=== PATIENT | female | born 1985 | race Caucasian/White ===

== ENCOUNTER 2017-10-05 04:47 | Inpatient (IN) ==
[2017-10-05] MEDS ORDERED: NS 1000 ML 1,000 ML IV ONE (05:05)
[2017-10-05] MEDS ORDERED: DEMEROL INJ IVP ONE (05:05)
[2017-10-05] MEDS ORDERED: ZOFRAN INJ 4 MG VIAL IVP ONE (05:05)
[2017-10-05] MEDS ORDERED: NS 1000 ML 1,000 ML ONE (05:07)
[2017-10-05] MEDS ORDERED: ZOFRAN INJ 4 MG VIAL ONE (05:07)
[2017-10-05] MEDS ORDERED: DEMEROL INJ ONE (05:07)
[2017-10-05 05:35] LABS: BASOPHILS # (AUTO) 0.1 X10^3/uL (0.0-0.1); BASOPHILS % (AUTO) 0.9 % (0.2-1.0); EOSINOPHILS % (AUTO) 0.5 % (0.9-2.9); HEMATOCRIT 38.7 % (36.0-47.0); HEMOGLOBIN 13.7 g/dL (12.0-16.0); LYMPHOCYTES # (AUTO) 2.5 X10^3/uL (1.3-2.9); MEAN CORPUSCULAR HEMOGLOBIN 31.7 pg (27.0-34.0); MEAN CORPUSCULAR HGB CONC 35.3 g/dL (33.0-35.0); MEAN CORPUSCULAR VOLUME 89.7 fL (80.0-100.0); MEAN PLATELET VOLUME 10.9 fL (7.4-11.0); NEUTROPHILS # (AUTO) 4.7 x10^3/uL (2.2-4.8); NEUTROPHILS % (AUTO) 56.6 % (42.0-75.0); PLATELET COUNT 276 X10^3/uL (150.0-450.0); RED BLOOD COUNT 4.32 X10^6/uL (3.5-5.4); RED CELL DISTRIBUTION WIDTH 13.4 % (11.6-16.5); WHITE BLOOD COUNT 8.3 X10^3/uL (3.6-10.0)
[2017-10-05 05:40] LABS: ALANINE AMINOTRANSFERASE 17 Units/L (12-78); ALBUMIN 4.1 g/dL (3.4-5.0); ALKALINE PHOSPHATASE 82 Units/L (46-116); ASPARTATE AMINO TRANSFERASE 9 Units/L (15-37); BLOOD UREA NITROGEN 24 mg/dL (7-18); CALCIUM 9.8 mg/dL (8.5-10.1); CARBON DIOXIDE 35.9 mmol/L (21-32); CHLORIDE 102 mmol/L (98-107); CREATININE 0.85 mg/dL (0.55-1.02); SODIUM 144 mmol/L (136-145); TOTAL PROTEIN 7.9 g/dL (6.4-8.2); eGFR NON BLACK RACES > 60 (>60)
[2017-10-05] MEDS ORDERED: DEMEROL INJ IVP PRN (08:40)
[2017-10-05] MEDS ORDERED: ZOFRAN INJ 4 MG VIAL IVP SCH (09:00)
[2017-10-05] MEDS: NS 1000 ML 1,000 ML IV SCH ×2 (09:40→16:25)
[2017-10-05 10:47] VITALS: BMI 17.6
[2017-10-05] MEDS: DEMEROL INJ IVP PRN ×3 (13:29→21:23)
[2017-10-05] MEDS: ZOFRAN INJ 4 MG VIAL IV PRN ×2 (15:39→21:24)
[2017-10-05] MEDS ORDERED: CHLORASEPTIC SPRAY MT PRN (23:38)
[2017-10-05] MEDS: PROTONIX INJ 40 MG VIAL IVP SCH (23:58)
[2017-10-06] MEDS: D5 1/2 NS 1000 ML 1,000 ML IV SCH ×6 (00:03→22:38)
[2017-10-06] MEDS ORDERED: DEMEROL INJ IVP ONE (00:04)
--- NOTE | 2017-10-06 00:23 | RAD ---
Acute abdominal series, three views Indication: Abdominal pain, NG tube placement Comparison: 10/04/2017 Findings: The heart is normal in size and the lungs are clear. No pleural effusion or pneumothorax id entified. The visualized bowel gas pattern is nonobstructive. No free air pneumatosis is identified. No patholo gic calcifications are seen. A nasogastric tube terminates over the left mid abdomen with side-port d istal to the GE junction. Imaged osseous structures are grossly intact. Impression: No acute chest process. No acute abdominal abnormality. Satisfactory NG tube placement, as above. Reported By:
[2017-10-06] MEDS: ZOFRAN INJ 4 MG VIAL IV PRN ×3 (03:32→20:32)
[2017-10-06] MEDS: DEMEROL INJ IVP PRN ×5 (03:32→22:36)
[2017-10-06 06:04] LABS: BASOPHILS % (AUTO) 0.4 % (0.2-1.0); EOSINOPHILS % (AUTO) 0.2 % (0.9-2.9); HEMATOCRIT 33.6 % (36.0-47.0); HEMOGLOBIN 11.6 g/dL (12.0-16.0); LYMPHOCYTES # (AUTO) 2.5 X10^3/uL (1.3-2.9); LYMPHOCYTES % (AUTO) 21.6 % (21.0-51.0); MEAN CORPUSCULAR HGB CONC 34.5 g/dL (33.0-35.0); MEAN CORPUSCULAR VOLUME 89.9 fL (80.0-100.0); MEAN PLATELET VOLUME 11.1 fL (7.4-11.0); MONOCYTES # (AUTO) 0.9 x10^3/uL (0.3-0.8); MONOCYTES % (AUTO) 7.8 % (0.0-13.0); NEUTROPHILS # (AUTO) 8.1 x10^3/uL (2.2-4.8); PLATELET COUNT 227 X10^3/uL (150.0-450.0); RED BLOOD COUNT 3.73 X10^6/uL (3.5-5.4); RED CELL DISTRIBUTION WIDTH 13.3 % (11.6-16.5); WHITE BLOOD COUNT 11.6 X10^3/uL (3.6-10.0)
[2017-10-06 06:38] LABS: ALANINE AMINOTRANSFERASE 16 Units/L (12-78); ALBUMIN 3.3 g/dL (3.4-5.0); ALKALINE PHOSPHATASE 64 Units/L (46-116); ASPARTATE AMINO TRANSFERASE 9 Units/L (15-37); BLOOD UREA NITROGEN 18 mg/dL (7-18); CALCIUM 8.5 mg/dL (8.5-10.1); CARBON DIOXIDE 31.4 mmol/L (21-32); CHLORIDE 104 mmol/L (98-107); COR CA(FOR HYPOALB) 9.1 mg/dL (8.5-10.1); COR NA(FOR HYPERGLY) 140 mmol/L (136-145); CREATININE 0.72 mg/dL (0.55-1.02); SODIUM 139 mmol/L (136-145); TOTAL PROTEIN 6.4 g/dL (6.4-8.2); eGFR NON BLACK RACES > 60 (>60)
--- NOTE | 2017-10-06 07:19 | RAD ---
HISTORY: Bowel obstruction Study: Acute abdominal series Comparison: 10/06/2017 at 12:07 a.m. Findings: The trachea is midline. The cardiac silhouette is unremarkable. The lungs are clear without focal i nfiltrate or effusion. The bony thorax is unremarkable. A nasogastric tube is in place with the tip at the level of the mid gastric body in the side hole wit hin the region of the gastric fundus. This is in satisfactory position. Flat plate and upright evaluation of the abdomen demonstrates a normal bowel gas pattern. There is no evidence of bowel obstruction or perforation. No free intraperitoneal air or fluid is seen. No path ological soft tissue mass or calcification can be observed. There are postsurgical changes present in volving the medial cecal region, likely from appendectomy. The bony structures are grossly intact. IMPRESSION: 1. No acute cardiopulmonary disease. 2. No evidence for acute abdominal pathology identified. No obstruction or perforation is seen. 3. Satisfactory placement of NG tube. Reported By:
[2017-10-06] MEDS: PROTONIX INJ 40 MG VIAL IVP SCH (08:48)
--- NOTE | 2017-10-06 10:57 | DR.H&P ---
H&P - History & Physical for Day of: H&P Date: 10/05/17 - Chief Complaint Chief Complaint: N/V/ABDOMINAL PAIN - History of Present Illness History of Present Illness: IS A 32 YEAR OLD PATIENT OF OURS WHO PRESENTED TO THE EMERGENCY ROOM WITH COMPLAINTS OF NAUSEA, VOMITING, AND ABDOMINAL PAIN. PATIENT REPORTS THAT SYMPTOMS STARTED ONE DAY EARLIER. THIS WAS APPARENTLY THE THIRD VISIT FOR THIS PATIENT FOR THE SAME SYMPTOMS IN THE PAST 24 HOURS. ON EXAMINATION, PATIENT IS NOTED WITH MODERATE, ON ARRIVAL, VITALS WERE 98.2-18-63-100%-123/58. LABS WERE OBTAINED. ABNORMAL LAB VALUES INCLUDE THE FOLLOWING: POTASSIM 3.4, CARBON DIOXIDE 35.9, BUN 24, AST 9. AN ABDOMEN/ PELVIS CT WAS OBTAINED YESTERDAY ON HER PREVIOUS VISIT TO THE ER AND REVEALED: Moderately severe distention of the stomach and moderate dilatation of the 1st and 2nd portion the duodenum with the 3rd portion of the duodenum appearing normal caliber. This may be due to an obstruction with no obvious abnormality seen along the transition of the 2nd and 3rd portion the duodenum . Recommend follow-up.Questionable mild ileus along the lower pelvic lower abdomen and pelvis with no pelvic mass or inflammation. PATIENT WAS ADMITTED FOR FURTHER EVALUATION AND TREATMENT. SHE WAS START ON D5 NS AT 150ML/HR, DEMEROL 25MG IV Q6H PRN PAIN, ZOFRAN 8MG IV Q6H PRN NAUSEA, AND PROTONIX 40MG IV DAILY. WE WILL CONSULT , GENERAL SURGEON. OTHERWISE, WE WILL FOLLOW UP WITH AM LABS AND CONTINUE TO MONITOR PATIENT. - Past Medical History Past Medical History: Seizures - Past Surgical History Surgical History: Appendectomy, Hysterectomy - Family History Family Medical History: Diabetes Mellitus, DC, Hypertension - Social History Does patient currently use any type of tobacco product: Yes Have you used tobacco products in the last 12 months: Yes Type of Tobacco Use: Cigarettes How many years tobacco product used: 21 Does any household member use tobacco: Yes Alcohol Use: None Drug Use: Prescription Drugs, Methamphetamine - Medications Home Medications: amoxicillin Allergy (Verified 10/04/17 08:29) citalopram [From Celexa] Allergy (Verified 10/04/17 08:29) drospirenone [From STACIE (28)] Allergy (Verified 10/04/17 08:29) ethinyl estradiol [From STACIE (28)] Allergy (Verified 10/04/17 08:29) Penicillins Allergy (Verified 10/04/17 08:29) sulfamethoxazole [From Bactrim] Allergy (Verified 10/04/17 08:29) trimethoprim [From Bactrim] Allergy (Verified 10/04/17 08:29) CONTINUE taking the following medications buprenorphine-naloxone [Suboxone] 1 film SUBLINGUAL TID 10/05/17 [History] cyproheptadine 1 tab PO BID 10/05/17 [History] - Review of Systems Constitutional: No Symptoms Reported Eyes: No Symptoms Reported ENT: No Symptoms Reported Respiratory: No Symptoms Reported Cardiovascular: No Symptoms Reported Gastrointestinal: See HPI, Nausea, Vomiting, Abdominal Pain Genitourinary: No Symptoms Reported Musculoskeletal: No Symptoms Reported Skin: No Symptoms Reported Neurological: No Symptoms Reported - Physical Exam Vital Signs: Temperature 98.4 F Pulse Rate [Left Brachial] 60 Pulse Rate 63 Respiratory Rate 20 Blood Pressure [Left Arm] 105/66 Blood Pressure [Right Arm] 135/77 Blood Pressure 123/58 O2 Sat by Pulse Oximetry 99 Oriented: Normal Eyes: Normal Ear: Normal Nose: Normal Throat: Normal Respiratory: Clear Throughout Cardiovascular: Normal. negative: S3, S4, Murmur : Normal Auscultation: Bowel Sounds: Normal Palpation: Normal Tenderness: Diffuse, Moderate. negative: Rebound, Guarding, Rigidity Musculoskeletal: Normal Psychiatric: Normal Mood Description: Calm Affect: Normal Speech Pattern: Clear - Assessment/Plan (1) Abdominal pain Qualifiers: Abdominal location: generalized Qualified Code(s): R10.84 - Generalized abdominal pain Status: Acute Plan: CONSULT FOR POSSIBLE BOWEL OBSTRUCTION, DEMEROL 25MG IV Q6H PRN PAIN, CONTINUE TO MONITOR (2) Intractable nausea and vomiting Qualifiers: Vomiting type: unspecified Qualified Code(s): R11.2 - Nausea with vomiting , unspecified Status: Acute Plan: ZOFRAN IV PRN, PHENERGAN IV PRN, CONTINUE TO MONITOR - Allergies Allergies/Adverse Reactions: Allergies Allergy/AdvReac Type Severity Reaction Status Date / Time amoxicillin Allergy Verified 10/04/17 08:29 citalopram [From Celexa] Allergy Verified 10/04/17 08:29 drospirenone [From STACIE (28)] Allergy Verified 10/04/17 08:29 ethinyl estradiol Allergy Verified 10/04/17 08:29 [From STACIE (28)] Penicillins Allergy Verified 10/04/17 08:29 sulfamethoxazole Allergy Verified 10/04/17 08:29 [From Bactrim] trimethoprim [From Bactrim] Allergy Verified 10/04/17 08:29
[2017-10-06] MEDS ORDERED: ROBINUL ONE ×2 (13:26→15:51)
[2017-10-06] MEDS ORDERED: DIPRIVAN VIAL 20 ML ONE (13:26)
[2017-10-06] MEDS ORDERED: VERSED ONE (13:26)
[2017-10-06] MEDS ORDERED: XYLOCAINE 2 % (PLAIN) ONE ×2 (13:27→15:51)
[2017-10-06] MEDS ORDERED: DIPRIVAN VIAL 10 ML ONE (13:54)
--- NOTE | 2017-10-06 14:16 | OR.GENERIC ---
Post-Op Note Generic - Post-Op Note Operative Report: EGD revealed dilated stomach , gastroperisis , and moderate gastritis ,no obstruction , no bleeding or ulcers . to schedule UGI and SBFT as out Pt
[2017-10-06] MEDS ORDERED: DIPRIVAN VIAL ONE (15:51)
[2017-10-06] MEDS: NICOTINE PATCH TD SCH (20:05)
[2017-10-06] MEDS: PHENERGAN INJ 25 MG IV PRN (22:37)
[2017-10-07] MEDS: D5 1/2 NS 1000 ML 1,000 ML IV SCH ×3 (00:10→16:58)
--- NOTE | 2017-10-07 03:46 | RAD ---
Abdomen, one view Indication: NG tube placement Comparison: 10/06/2017 Findings: Tip of the nasogastric tube terminates over the gastric body with side-port distal to the G E junction. The visualized bowel gas pattern is nonobstructive. No free air or pneumatosis is identif ied. No pathologic calcifications seen. Lung bases are clear. Imaged osseous structures are intact. Impression: Satisfactory NG tube placement, as above. Reported By:
[2017-10-07] MEDS: DEMEROL INJ IVP PRN ×5 (04:03→21:35)
[2017-10-07] MEDS: ZOFRAN INJ 4 MG VIAL IV PRN ×3 (04:04→21:35)
[2017-10-07 06:27] LABS: BASOPHILS % (AUTO) 0.3 % (0.2-1.0); EOSINOPHILS # (AUTO) 0.1 x10^3/uL (0.0-0.2); EOSINOPHILS % (AUTO) 0.5 % (0.9-2.9); HEMATOCRIT 32.6 % (36.0-47.0); HEMOGLOBIN 11.6 g/dL (12.0-16.0); LYMPHOCYTES # (AUTO) 2.1 X10^3/uL (1.3-2.9); LYMPHOCYTES % (AUTO) 19.5 % (21.0-51.0); MEAN CORPUSCULAR HEMOGLOBIN 31.8 pg (27.0-34.0); MEAN CORPUSCULAR HGB CONC 35.6 g/dL (33.0-35.0); MEAN CORPUSCULAR VOLUME 89.5 fL (80.0-100.0); MEAN PLATELET VOLUME 11.3 fL (7.4-11.0); MONOCYTES # (AUTO) 0.7 x10^3/uL (0.3-0.8); MONOCYTES % (AUTO) 6.3 % (0.0-13.0); NEUTROPHILS # (AUTO) 7.8 x10^3/uL (2.2-4.8); NEUTROPHILS % (AUTO) 73.4 % (42.0-75.0); PLATELET COUNT 208 X10^3/uL (150.0-450.0); RED BLOOD COUNT 3.64 X10^6/uL (3.5-5.4); RED CELL DISTRIBUTION WIDTH 12.7 % (11.6-16.5); WHITE BLOOD COUNT 10.7 X10^3/uL (3.6-10.0)
[2017-10-07 06:40] LABS: ALANINE AMINOTRANSFERASE 18 Units/L (12-78); ALBUMIN 3.4 g/dL (3.4-5.0); ALKALINE PHOSPHATASE 65 Units/L (46-116); ASPARTATE AMINO TRANSFERASE 11 Units/L (15-37); BLOOD UREA NITROGEN 6 mg/dL (7-18); CALCIUM 8.2 mg/dL (8.5-10.1); CARBON DIOXIDE 31.9 mmol/L (21-32); CHLORIDE 102 mmol/L (98-107); CREATININE 0.66 mg/dL (0.55-1.02); SODIUM 141 mmol/L (136-145); TOTAL PROTEIN 6.3 g/dL (6.4-8.2); eGFR NON BLACK RACES > 60 (>60)
[2017-10-07] MEDS ORDERED: POTASSIUM CHLORIDE LIQ 20 MEQ UDC PO PRN (07:21)
[2017-10-07] MEDS ORDERED: K-LYTE EFFERVESCENT PO PRN (07:21)
[2017-10-07] MEDS ORDERED: K-RIDER 10 MEQ/NS 100 ML 10 MEQ/100 ML BAG IV PRN (07:21)
[2017-10-07] MEDS ORDERED: POTASSIUM CHL 60 MEQ/NS 0.45% 500 ML IV PRN (07:21)
[2017-10-07] MEDS ORDERED: POTASSIUM CHL 40 MEQ/NS 0.45% 500 ML IV PRN (07:21)
[2017-10-07] MEDS: PHENERGAN INJ 25 MG IV PRN ×2 (07:40→17:38)
[2017-10-07] MEDS: PROTONIX INJ 40 MG VIAL IVP SCH (08:48)
[2017-10-07] MEDS: NICOTINE PATCH TD SCH (08:48)
--- NOTE | 2017-10-07 13:25 | PCM.PROG ---
Progress Note - Progress Note for Day of Date of Exam: 10/06/17 - Subjective Subjective: WAS ADMITTED FOR POSSIBLE ILEUS AND SMALL BOWEL OBSTRUCTION. TODAY, SHE IS ALERT AND ORIENTED, LYING IN BED ON MORNING ROUNDS. SHE CONTINUES WITH COMPLAINTS OF DIFFUSE ABDOMINAL PAIN. AN NG TUBE WAS INSERTED LAST NIGHT, HOWEVER, PATIENT REMOVED TUBE ON HER OWN THIS MORNING DUE TO DISCOMFORT. ON EXAMINATION, HEART IS REGULAR IN RATE AND RHYTHM. BILATERAL LUNGS ARE NOTED WITH MODERATE, DIFFUSE ABDOMINAL PAIN ON EXAMINATION. INCREASED BOWEL SOUNDS ARE NOTED IN ALL QUADRANTS. HER VITALS THIS MORNING ARE 98.4-60-20- 99%-135/77. LABS WERE OBTAINED. ABNORMAL LAB VALUES INCLUDE THE FOLLOWING: WBC 11.6, HGB 11.6, HCT 33.6, GLUCOSE 157, AST 9, ALBUMIN 3.3. TOXICOLOGY REVEALED POSITIVE FOR AMPHETAMINES. PATIENT ADMITTED TO USE OF METHAMPHETAMINES PRIOR TO ADMISSION. HAS CONSULTED WITH PATIENT AND PLANS FOR AN UPPER ENDOSCOPY TODAY. OTHERWISE, WE WILL CONTINUE WITH CURRENT PLAN OF CARE. WE PLAN TO FOLLOW UP WITH AM LABS AND CONTINUE TO MONITOR PATIENT. - Past Medical Family Social History Past Med/Fam/Surg Hx: No changes since H&P Allergies: Allergies amoxicillin Allergy (Verified 10/04/17 08:29) citalopram [From Celexa] Allergy (Verified 10/04/17 08:29) drospirenone [From STACIE (28)] Allergy (Verified 10/04/17 08:29) ethinyl estradiol [From STACIE (28)] Allergy (Verified 10/04/17 08:29) Penicillins Allergy (Verified 10/04/17 08:29) sulfamethoxazole [From Bactrim] Allergy (Verified 10/04/17 08:29) trimethoprim [From Bactrim] Allergy (Verified 10/04/17 08:29) - Review of Systems ROS: No change since H&P - Vital Signs and I&O's Vital Signs: Temperature 99.7 F Pulse Rate [Left Brachial] 62 Pulse Rate 63 Respiratory Rate 18 Blood Pressure [Left Arm] 131/75 Blood Pressure [Right Arm] 138/77 Blood Pressure 123/58 O2 Sat by Pulse Oximetry 98 Intake and Output: Intake & Output 10/05/17 10/06/17 10/07/17 10/08/17 11:59 11:59 11:59 11:59 Intake Total 2644 / 2644 460 / 460 Output Total 1750 / 1750 1200 / 1200 Balance 894 / 894 -740 / -740 - Physical Exam Oriented: Normal Eyes: Normal Ear: Normal Nose: Normal Throat: Normal Respiratory: Normal Cardiovascular: Normal. negative: S3, S4, Murmur : Normal Auscultation: Bowel Sounds: Normal Palpation: Normal Tenderness: Diffuse, Moderate. negative: Rebound, Guarding, Rigidity Musculoskeletal: Normal Psychiatric: Normal Mood Description: Calm Affect: Normal Speech Pattern: Clear, Appropriate - Laboratory and Diagnostics Result Diagrams: 10/07/17 05:15 10/07/17 05:15 Labs: Laboratory WBC 10.7 X10^3/uL (3.6-10.0) H 10/07/17 05:15 RBC 3.64 X10^6/uL (3.5-5.4) 10/07/17 05:15 Hgb 11.6 g/dL (12.0-16.0) L 10/07/17 05:15 Hct 32.6 % (36.0-47.0) L 10/07/17 05:15 MCV 89.5 fL (80.0-100.0) 10/07/17 05:15 MCH 31.8 pg (27.0-34.0) 10/07/17 05:15 MCHC 35.6 g/dL (33.0-35.0) H 10/07/17 05:15 RDW 12.7 % (11.6-16.5) 10/07/17 05:15 Plt Count 208 X10^3/uL (150.0-450.0) 10/07/17 05:15 MPV 11.3 fL (7.4-11.0) H 10/07/17 05:15 Neut % (Auto) 73.4 % (42.0-75.0) 10/07/17 05:15 Lymph % (Auto) 19.5 % (21.0-51.0) L 10/07/17 05:15 [place] % (Auto) 6.3 % (0.0-13.0) 10/07/17 05:15 Eos % (Auto) 0.5 % (0.9-2.9) L 10/07/17 05:15 Baso % (Auto) 0.3 % (0.2-1.0) 10/07/17 05:15 Neut # (Auto) 7.8 x10^3/uL (2.2-4.8) H 10/07/17 05:15 Lymph # (Auto) 2.1 X10^3/uL (1.3-2.9) 10/07/17 05:15 [place] # (Auto) 0.7 x10^3/uL (0.3-0.8) 10/07/17 05:15 Eos # (Auto) 0.1 x10^3/uL (0.0-0.2) 10/07/17 05:15 Baso # (Auto) 0.0 X10^3/uL (0.0-0.1) 10/07/17 05:15 Absolute Nucleated RBC 0.0 /100WBC 10/07/17 05:15 ESR 14 MM/HOUR (0-20) 10/06/17 05:23 Sodium 141 mmol/L (136-145) 10/07/17 05:15 Corrected Sodium TNP 10/07/17 05:15 Potassium 2.7 mmol/L (3.5-5.1) L* 10/07/17 05:15 Chloride 102 mmol/L (98-107) 10/07/17 05:15 Carbon Dioxide 31.9 mmol/L (21-32) 10/07/17 05:15 BUN 6 mg/dL (7-18) L 10/07/17 05:15 Creatinine 0.66 mg/dL (0.55-1.02) 10/07/17 05:15 Est GFR (MDRD) Af Amer > 60 (>60) 10/07/17 05:15 Est GFR (MDRD) Non-Af > 60 (>60) 10/07/17 05:15 Glucose 103 mg/dL (65-99) H 10/07/17 05:15 Calcium 8.2 mg/dL (8.5-10.1) L 10/07/17 05:15 Corrected Calcium TNP 10/07/17 05:15 Magnesium 1.9 mg/dL (1.7-2.9) 10/07/17 05:15 Total Bilirubin 0.30 mg/dL (0.2-1.0) 10/07/17 05:15 AST 11 Units/L (15-37) L 10/07/17 05:15 ALT 18 Units/L (12-78) 10/07/17 05:15 Alkaline Phosphatase 65 Units/L (46-116) 10/07/17 05:15 Total Protein 6.3 g/dL (6.4-8.2) L 10/07/17 05:15 Albumin 3.4 g/dL (3.4-5.0) 10/07/17 05:15 Globulin 2.9 g/dL (2.5-4.5) 10/07/17 05:15 Albumin/Globulin Ratio 1.2 Ratio (1.1-2.1) 10/07/17 05:15 Urine Opiates Screen Negative (NEG=<300) 10/06/17 10:35 Urine Methadone Screen Negative (NEG=<300) 10/06/17 10:35 Ur Barbiturates Screen Negative (NEG=<200) 10/06/17 10:35 Ur Phencyclidine Scrn Negative (NEG=<25) 10/06/17 10:35 Ur Amphetamines Screen Positive (NEG=<1000) A 10/06/17 10:35 U Benzodiazepines Scrn Negative (NEG=<200) 10/06/17 10:35 Urine Cocaine Screen Negative (NEG=<300) 10/06/17 10:35 U Marijuana (THC) Screen Negative (NEG=<50) 10/06/17 10:35 Tissue Pathology To follow 10/06/17 14:03 - Plan (1) Abdominal pain Status: Acute Qualifiers: Abdominal location: generalized Qualified Code(s): R10.84 - Generalized abdominal pain Plan: UPPER ENDOSCOPY TODAY, DEMEROL 25MG IV Q4H PRN PAIN, CONTINUE TO MONITOR (2) Intractable nausea and vomiting Status: Acute Qualifiers: Vomiting type: unspecified Qualified Code(s): R11.2 - Nausea with vomiting , unspecified Plan: ZOFRAN IV PRN, PHENERGAN IV PRN, CONTINUE TO MONITOR
[2017-10-07] MEDS ORDERED: NS 1000 ML 1,000 ML ONE (16:55)
[2017-10-07] MEDS: PERIACTIN TAB 4 MG PO SCH (20:30)
--- NOTE | 2017-10-07 20:50 | PCM.PROG ---
Progress Note - Progress Note for Day of Date of Exam: 10/07/17 - Subjective Subjective: WAS ADMITTED FOR POSSIBLE ILEUS AND SMALL BOWEL OBSTRUCTION. TODAY, SHE IS ALERT AND ORIENTED, LYING IN BED ON MORNING ROUNDS. SHE CONTINUES WITH COMPLAINTS OF DIFFUSE ABDOMINAL PAIN, BUT REPORTS THAT IT IS SLIGHTLY IMPROVED SINCE YESTERDAY. TOOK PATIENT FOR AN UPPER ENDOSCOPY WITH BIOPSY YESTERDAY. ENDOSCOPY REVEALED DILATED STOMACH, GASTROPARESIS, AND MODERATE GASTRITIS. NO BLEEDING OR ULCERS SEEN. BIOPSY SENT TO LAB. AN NG TUBE WAS REINSERTED YESTERDAY, HOWEVER, PATIENT REMOVED TUBE HERSELF THROUGHOUT THE NIGHT. PATIENT STATES, I GOT TO SNEEZING AND IT HURT. ON EXAMINATION, HEART IS REGULAR IN RATE AND RHYTHM. BILATERAL LUNGS ARE CLEAR TO AUSCULTATION. ABDOMEN IS NOTED WITH MILD, DIFFUSE ABDOMINAL PAIN ON EXAMINATION. INCREASED BOWEL SOUNDS ARE NOTED IN ALL QUADRANTS. HER VITALS THIS MORNING ARE 99.7-62-18-98%-131/75. LABS WERE OBTAINED. ABNORMAL LAB VALUES INCLUDE THE FOLLOWING: WBC 10.7, HGB 11.6, HCT 32.6, POTASSIUM 2.7, BUN 6, GLUCOSE 103, CALCIUM 8.2, AST 11, TOTAL PROTEIN 6.3. TODAY, WE WILL CONTINUE WITH CURRENT PLAN OF CARE. OTHERWISE, WE PLAN TO FOLLOW UP WITH AM LABS AND CONTINUE TO MONITOR PATIENT. - Past Medical Family Social History Past Med/Fam/Surg Hx: No changes since H&P Allergies: Allergies amoxicillin Allergy (Verified 10/04/17 08:29) citalopram [From Celexa] Allergy (Verified 10/04/17 08:29) drospirenone [From STACIE (28)] Allergy (Verified 10/04/17 08:29) ethinyl estradiol [From STACIE (28)] Allergy (Verified 10/04/17 08:29) Penicillins Allergy (Verified 10/04/17 08:29) sulfamethoxazole [From Bactrim] Allergy (Verified 10/04/17 08:29) trimethoprim [From Bactrim] Allergy (Verified 10/04/17 08:29) - Review of Systems ROS: No change since H&P - Vital Signs and I&O's Vital Signs: Temperature 98.5 F Pulse Rate [Left Brachial] 60 Pulse Rate 63 Respiratory Rate 18 Blood Pressure [Left Arm] 128/69 Blood Pressure [Right Arm] 138/77 Blood Pressure 123/58 O2 Sat by Pulse Oximetry 99 Intake and Output: Intake & Output 10/05/17 10/06/17 10/07/17 10/08/17 11:59 11:59 11:59 11:59 Intake Total 2644 / 2644 460 / 460 360 / 360 Output Total 1750 / 1750 1200 / 1200 Balance 894 / 894 -740 / -740 360 / 360 - Physical Exam Oriented: Normal Eyes: Normal Ear: Normal Nose: Normal Throat: Normal Respiratory: Normal Cardiovascular: Normal. negative: S3, S4, Murmur : Normal Auscultation: Bowel Sounds: Normal Palpation: Normal Tenderness: Diffuse, Moderate. negative: Rebound, Guarding, Rigidity Musculoskeletal: Normal Psychiatric: Normal Mood Description: Calm Affect: Normal Speech Pattern: Clear, Appropriate - Laboratory and Diagnostics Result Diagrams: 10/07/17 05:15 10/07/17 18:47 Labs: Laboratory WBC 10.7 X10^3/uL (3.6-10.0) H 10/07/17 05:15 RBC 3.64 X10^6/uL (3.5-5.4) 10/07/17 05:15 Hgb 11.6 g/dL (12.0-16.0) L 10/07/17 05:15 Hct 32.6 % (36.0-47.0) L 10/07/17 05:15 MCV 89.5 fL (80.0-100.0) 10/07/17 05:15 MCH 31.8 pg (27.0-34.0) 10/07/17 05:15 MCHC 35.6 g/dL (33.0-35.0) H 10/07/17 05:15 RDW 12.7 % (11.6-16.5) 10/07/17 05:15 Plt Count 208 X10^3/uL (150.0-450.0) 10/07/17 05:15 MPV 11.3 fL (7.4-11.0) H 10/07/17 05:15 Neut % (Auto) 73.4 % (42.0-75.0) 10/07/17 05:15 Lymph % (Auto) 19.5 % (21.0-51.0) L 10/07/17 05:15 [place] % (Auto) 6.3 % (0.0-13.0) 10/07/17 05:15 Eos % (Auto) 0.5 % (0.9-2.9) L 10/07/17 05:15 Baso % (Auto) 0.3 % (0.2-1.0) 10/07/17 05:15 Neut # (Auto) 7.8 x10^3/uL (2.2-4.8) H 10/07/17 05:15 Lymph # (Auto) 2.1 X10^3/uL (1.3-2.9) 10/07/17 05:15 [place] # (Auto) 0.7 x10^3/uL (0.3-0.8) 10/07/17 05:15 Eos # (Auto) 0.1 x10^3/uL (0.0-0.2) 10/07/17 05:15 Baso # (Auto) 0.0 X10^3/uL (0.0-0.1) 10/07/17 05:15 Absolute Nucleated RBC 0.0 /100WBC 10/07/17 05:15 ESR 14 MM/HOUR (0-20) 10/06/17 05:23 Sodium 141 mmol/L (136-145) 10/07/17 05:15 Corrected Sodium TNP 10/07/17 05:15 Potassium 3.3 mmol/L (3.5-5.1) L 10/07/17 18:47 Chloride 102 mmol/L (98-107) 10/07/17 05:15 Carbon Dioxide 31.9 mmol/L (21-32) 10/07/17 05:15 BUN 6 mg/dL (7-18) L 10/07/17 05:15 Creatinine 0.66 mg/dL (0.55-1.02) 10/07/17 05:15 Est GFR (MDRD) Af Amer > 60 (>60) 10/07/17 05:15 Est GFR (MDRD) Non-Af > 60 (>60) 10/07/17 05:15 Glucose 103 mg/dL (65-99) H 10/07/17 05:15 Calcium 8.2 mg/dL (8.5-10.1) L 10/07/17 05:15 Corrected Calcium TNP 10/07/17 05:15 Magnesium 1.9 mg/dL (1.7-2.9) 10/07/17 05:15 Total Bilirubin 0.30 mg/dL (0.2-1.0) 10/07/17 05:15 AST 11 Units/L (15-37) L 10/07/17 05:15 ALT 18 Units/L (12-78) 10/07/17 05:15 Alkaline Phosphatase 65 Units/L (46-116) 10/07/17 05:15 Total Protein 6.3 g/dL (6.4-8.2) L 10/07/17 05:15 Albumin 3.4 g/dL (3.4-5.0) 10/07/17 05:15 Globulin 2.9 g/dL (2.5-4.5) 10/07/17 05:15 Albumin/Globulin Ratio 1.2 Ratio (1.1-2.1) 10/07/17 05:15 Urine Opiates Screen Negative (NEG=<300) 10/06/17 10:35 Urine Methadone Screen Negative (NEG=<300) 10/06/17 10:35 Ur Barbiturates Screen Negative (NEG=<200) 10/06/17 10:35 Ur Phencyclidine Scrn Negative (NEG=<25) 10/06/17 10:35 Ur Amphetamines Screen Positive (NEG=<1000) A 10/06/17 10:35 U Benzodiazepines Scrn Negative (NEG=<200) 10/06/17 10:35 Urine Cocaine Screen Negative (NEG=<300) 10/06/17 10:35 U Marijuana (THC) Screen Negative (NEG=<50) 10/06/17 10:35 Tissue Pathology To follow 10/06/17 14:03 - Plan (1) Abdominal pain Status: Acute Qualifiers: Abdominal location: generalized Qualified Code(s): R10.84 - Generalized abdominal pain Plan: UPPER ENDOSCOPY TODAY, DEMEROL 25MG IV Q4H PRN PAIN, CONTINUE TO MONITOR (2) Intractable nausea and vomiting Status: Acute Qualifiers: Vomiting type: unspecified Qualified Code(s): R11.2 - Nausea with vomiting , unspecified Plan: ZOFRAN IV PRN, PHENERGAN IV PRN, CONTINUE TO MONITOR
[2017-10-07] MEDS ORDERED: SUBOXONE FILM SL SCH (22:00)
--- NOTE | 2017-10-08 | DR.PROGNOT ---
Hospital Progress Notes - Progress Note for Day of: Progress Note Date: 10/07/17 - Chief Complaint Chief Complaint: feeling better but still having nausea and abdominal pain . EGD showed gastroperisis without obstruction . - Past Medical Family Social History Past Med/Fam/Surg Hx: No changes since H&P Allergies: Allergies amoxicillin Allergy (Verified 10/04/17 08:29) citalopram [From Celexa] Allergy (Verified 10/04/17 08:29) drospirenone [From STACIE (28)] Allergy (Verified 10/04/17 08:29) ethinyl estradiol [From STACIE (28)] Allergy (Verified 10/04/17 08:29) Penicillins Allergy (Verified 10/04/17 08:29) sulfamethoxazole [From Bactrim] Allergy (Verified 10/04/17 08:29) trimethoprim [From Bactrim] Allergy (Verified 10/04/17 08:29) - Review Of Systems ROS: No change since H&P - Vital Signs Vital Signs: Temperature 98.2 F Pulse Rate [Left Brachial] 68 Pulse Rate 63 Respiratory Rate 18 Blood Pressure [Left Arm] 138/82 Blood Pressure [Right Arm] 138/77 Blood Pressure 123/58 O2 Sat by Pulse Oximetry 97 - Physical Exam Oriented: Normal Eyes: Normal Ear: Normal Nose: Normal Throat: Normal Respiratory: Normal Cardiovascular: Normal. negative: S3, S4, Murmur : Normal GI:Auscultation: Normal GI:Palpation: Normal GI: Tenderness: Diffuse, Moderate. negative: Rebound, Guarding, Rigidity Musculoskeletal: Normal Psychiatric: Normal Mood Description: Calm Affect: Normal Speech Pattern: Clear, Appropriate - Laboratory and Diagnostics Result Diagrams: 10/07/17 05:15 10/07/17 18:47 Labs: Laboratory WBC 10.7 X10^3/uL (3.6-10.0) H 10/07/17 05:15 RBC 3.64 X10^6/uL (3.5-5.4) 10/07/17 05:15 Hgb 11.6 g/dL (12.0-16.0) L 10/07/17 05:15 Hct 32.6 % (36.0-47.0) L 10/07/17 05:15 MCV 89.5 fL (80.0-100.0) 10/07/17 05:15 MCH 31.8 pg (27.0-34.0) 10/07/17 05:15 MCHC 35.6 g/dL (33.0-35.0) H 10/07/17 05:15 RDW 12.7 % (11.6-16.5) 10/07/17 05:15 Plt Count 208 X10^3/uL (150.0-450.0) 10/07/17 05:15 MPV 11.3 fL (7.4-11.0) H 10/07/17 05:15 Neut % (Auto) 73.4 % (42.0-75.0) 10/07/17 05:15 Lymph % (Auto) 19.5 % (21.0-51.0) L 10/07/17 05:15 [place] % (Auto) 6.3 % (0.0-13.0) 10/07/17 05:15 Eos % (Auto) 0.5 % (0.9-2.9) L 10/07/17 05:15 Baso % (Auto) 0.3 % (0.2-1.0) 10/07/17 05:15 Neut # (Auto) 7.8 x10^3/uL (2.2-4.8) H 10/07/17 05:15 Lymph # (Auto) 2.1 X10^3/uL (1.3-2.9) 10/07/17 05:15 [place] # (Auto) 0.7 x10^3/uL (0.3-0.8) 10/07/17 05:15 Eos # (Auto) 0.1 x10^3/uL (0.0-0.2) 10/07/17 05:15 Baso # (Auto) 0.0 X10^3/uL (0.0-0.1) 10/07/17 05:15 Absolute Nucleated RBC 0.0 /100WBC 10/07/17 05:15 ESR 14 MM/HOUR (0-20) 10/06/17 05:23 Sodium 141 mmol/L (136-145) 10/07/17 05:15 Corrected Sodium TNP 10/07/17 05:15 Potassium 3.3 mmol/L (3.5-5.1) L 10/07/17 18:47 Chloride 102 mmol/L (98-107) 10/07/17 05:15 Carbon Dioxide 31.9 mmol/L (21-32) 10/07/17 05:15 BUN 6 mg/dL (7-18) L 10/07/17 05:15 Creatinine 0.66 mg/dL (0.55-1.02) 10/07/17 05:15 Est GFR (MDRD) Af Amer > 60 (>60) 10/07/17 05:15 Est GFR (MDRD) Non-Af > 60 (>60) 10/07/17 05:15 Glucose 103 mg/dL (65-99) H 10/07/17 05:15 Calcium 8.2 mg/dL (8.5-10.1) L 10/07/17 05:15 Corrected Calcium TNP 10/07/17 05:15 Magnesium 1.9 mg/dL (1.7-2.9) 10/07/17 05:15 Total Bilirubin 0.30 mg/dL (0.2-1.0) 10/07/17 05:15 AST 11 Units/L (15-37) L 10/07/17 05:15 ALT 18 Units/L (12-78) 10/07/17 05:15 Alkaline Phosphatase 65 Units/L (46-116) 10/07/17 05:15 Total Protein 6.3 g/dL (6.4-8.2) L 10/07/17 05:15 Albumin 3.4 g/dL (3.4-5.0) 10/07/17 05:15 Globulin 2.9 g/dL (2.5-4.5) 10/07/17 05:15 Albumin/Globulin Ratio 1.2 Ratio (1.1-2.1) 10/07/17 05:15 Urine Opiates Screen Negative (NEG=<300) 10/06/17 10:35 Urine Methadone Screen Negative (NEG=<300) 10/06/17 10:35 Ur Barbiturates Screen Negative (NEG=<200) 10/06/17 10:35 Ur Phencyclidine Scrn Negative (NEG=<25) 10/06/17 10:35 Ur Amphetamines Screen Positive (NEG=<1000) A 10/06/17 10:35 U Benzodiazepines Scrn Negative (NEG=<200) 10/06/17 10:35 Urine Cocaine Screen Negative (NEG=<300) 10/06/17 10:35 U Marijuana (THC) Screen Negative (NEG=<50) 10/06/17 10:35 Tissue Pathology To follow 10/06/17 14:03 - Assessment and Plan 1: abdominal pain . R/O IBD. gastroperesis . Wt loss. will need future UGI with SBFT. will follow as Out Pt - Problem Patient Problems: Patient Problems Abdominal pain (Acute) R10.9 Bowel obstruction (Acute) K56.609 Intractable nausea and vomiting (Acute) R11.2
[2017-10-08] MEDS: D5 1/2 NS 1000 ML 1,000 ML IV SCH ×2 (00:01→08:13)
[2017-10-08] MEDS: PHENERGAN INJ 25 MG IV PRN ×2 (00:33→06:11)
[2017-10-08] MEDS: DEMEROL INJ IVP PRN ×2 (01:27→05:20)
[2017-10-08] MEDS: ZOFRAN INJ 4 MG VIAL IV PRN (03:36)
[2017-10-08 05:28] LABS: BASOPHILS # (AUTO) 0.1 X10^3/uL (0.0-0.1); BASOPHILS % (AUTO) 0.6 % (0.2-1.0); EOSINOPHILS # (AUTO) 0.1 x10^3/uL (0.0-0.2); EOSINOPHILS % (AUTO) 1.6 % (0.9-2.9); HEMATOCRIT 35.1 % (36.0-47.0); HEMOGLOBIN 12.3 g/dL (12.0-16.0); LYMPHOCYTES # (AUTO) 2.5 X10^3/uL (1.3-2.9); LYMPHOCYTES % (AUTO) 26.6 % (21.0-51.0); MEAN CORPUSCULAR HEMOGLOBIN 31.3 pg (27.0-34.0); MEAN CORPUSCULAR HGB CONC 35.1 g/dL (33.0-35.0); MEAN PLATELET VOLUME 10.6 fL (7.4-11.0); MONOCYTES # (AUTO) 0.8 x10^3/uL (0.3-0.8); MONOCYTES % (AUTO) 8.2 % (0.0-13.0); PLATELET COUNT 216 X10^3/uL (150.0-450.0); RED BLOOD COUNT 3.94 X10^6/uL (3.5-5.4); WHITE BLOOD COUNT 9.4 X10^3/uL (3.6-10.0)
[2017-10-08 05:46] LABS: ALANINE AMINOTRANSFERASE 20 Units/L (12-78); ALBUMIN 3.6 g/dL (3.4-5.0); ALKALINE PHOSPHATASE 75 Units/L (46-116); ASPARTATE AMINO TRANSFERASE 11 Units/L (15-37); BLOOD UREA NITROGEN 6 mg/dL (7-18); CALCIUM 8.5 mg/dL (8.5-10.1); CARBON DIOXIDE 30.2 mmol/L (21-32); CHLORIDE 102 mmol/L (98-107); CREATININE 0.63 mg/dL (0.55-1.02); SODIUM 140 mmol/L (136-145); TOTAL PROTEIN 6.9 g/dL (6.4-8.2); eGFR NON BLACK RACES > 60 (>60)
[2017-10-08] MEDS: PROTONIX INJ 40 MG VIAL IVP SCH (08:18)
[2017-10-08] MEDS: PERIACTIN TAB 4 MG PO SCH (08:18)
[2017-10-08] MEDS: NICOTINE PATCH TD SCH (08:27)
[2017-10-08] MEDS ORDERED: COLACE CAP 100 MG PO PRN (10:01)
[2017-10-08] MEDS ORDERED: MILK OF MAGNESIA PO SCH (11:00)
[2017-10-08 12:04] VITALS: BP 110/60
--- NOTE | 2017-10-08 14:34 | RAD ---
HISTORY: 32-year-old female with nausea and vomiting. Study: Single view the abdomen. Comparison: Abdominal radiograph this date. Acute abdominal series [id number]. Findings: Interval removal enteric tube. Evaluation of the abdomen demonstrates a nonobstructive bowel gas pattern with gas and stool througho ut the colon. No radiographic evidence of free intraperitoneal air. No pathological soft tissue mass or calcification can be observed. The bony structures are grossly intact. IMPRESSION: 1. No evidence for acute abdominal pathology identified. Reported By:
--- NOTE | 2017-10-15 14:29 | ED.ABDFE ---
HPI Time Seen Time seen: 04:50 PCP Primary Care Physician: LALA HPI Comment HPI Comment: PATIENT SEEN IN ED TWICE BUT SIGN AMA. SHE HAD EVALUATION WITH CT ABD. CONCERN FOR BOWEL OBSTRUCTION ON CT REPORT. SHE CONTINUE HAVING N/V AND INCREASING ABDOMINAL PAIN AND DISTENSION. SHE IS RUNNING FEVER AT HOME. NO DYSURIA OR DIARRHEA. Complaint Doctors Chief Complaint Comments: ABDOMINAL PAIN, ABDOMINAL DISTENSION AND N/V TIMES 2 DAYS. Chief Complaint:: PT C/O N/V ABD PAIN Reviewed Nurses Notes Review: Yes Source History Provided: Patient Mode of arrival Mode of Arrival: EMS Timing Onset of Chief Complaint: 10/04/17 Came on: Suddenly Duration Since Onset: Constant Duration: Days Location Location: Epigastric Severity Severity: Moderate Quality Quality: Burning and Sharp Context History of: None Modifying factors Worsening Factors: Nothing Improving Factors: Nothing Associated signs and symptoms Associated Signs and Symptoms: Nausea and Vomiting Other history Other History: LOWGRADE FEVER. PMH PMH Past Medical History: Yes Past Medical History: Seizures Past Surgical History: Yes Surgical History: Appendectomy, [facility] Surgery and Hysterectomy Family History History of Family Medical Conditions: Yes Family Medical History: Diabetes Mellitus and Cancer Social History Have you used tobacco products in the last 12 months: Yes Type of Tobacco Use: Cigarettes Does any household member use tobacco: Yes Alcohol Use: Occasionally Do you use any recreational Drugs:: Yes (METH) Lives With: Significant Other Lives Where: Home infectious screening In the last 2 months have you had wt loss of >10#?: NO Have you had fever, night sweats or hemotysis?: No Have you traveled outside the country in the last 6 months?: No Isolation: Standard ROS Review of Systems Constitutional: No Symptoms Reported, Fever, Weakness and Fatigue; negative Chills Eyes: No Symptoms Reported ENTM: No Symptoms Reported Respiratoy: No Symptoms Reported Cardiovascular: No Symptoms Reported Gastrointestinal/Abdominal: Abdominal Pain, Nausea and Vomiting Genitourinary: No Symptoms Reported Neurological: Headache and Weakness Musculoskeletal: Muscle Pain Integumentary: Change in Color and Dryness Hematologic/Lymphatic: No Symptoms Reported Endocrine: No Symptoms Reported Psychiatric: No Symptoms Reported All Other Systems: Reviewed and Negative PE Vital Signs Vitals: Temperature 98.6 F Pulse Rate [Left Brachial] 69 Pulse Rate 63 Respiratory Rate 20 Blood Pressure [Left Arm] 110/60 Blood Pressure [Right Arm] 138/77 Blood Pressure 123/58 O2 Sat by Pulse Oximetry 96 General Limitations: No Limitations General Appearance: Alert and In No Apparent Distress Head Head Exam: Normal Inspection, Atraumatic and Normocephalic Eyes Eye exam: Normal Appearance, PERRL and EOMI; negative Scleral Icterus and Conjunctival Injection ENT ENT Exam: Normal Exam, Normal Oropharynx and Normal External Ear Exam Neck Neck Exam: Normal Inspection and Trachea Midline Chest Chest Inspection: Normal Inspection and Symmetric Chest Wall Rise Respiratory Respiratory Exam: Normal Lung Sounds Bilat Respiratory Exam: Bilateral: Clear to Auscultation Cardiovascular Cardiovascular Exam: Regular Rate, Normal Rhythm and Normal Heart Sounds Abdominal Exam Abdominal Exam: Normal Bowel Sounds, Soft, Distention and Tenderness Abdominal Tenderness: Epigastrium, Diffuse and Moderate Rectal Rectal Exam: Deferred Back Back Exam: Normal Inspection Extremeties Extremities Exam: Normal Inspection External Exam: Female: Deferred : Bimanual Exam (female): Deferred Neurologic Neurological Exam: Alert, Oriented X3, CN II-XII Intact and Normal Gait Psychiatric Psychiatric Exam: Normal Affect Skin Skin Exam: Dry and Intact MDM Differential Diagnosis Differential Diagnosis- Considerations may include:: Bowel Obstruction, Cholcystitis, Cholelethiasis, Diverticular disease, Gastritus/PUD, Gastroenteritis, Inflammatory BD, Ovarian cyst/torsion, Pancreatitis, Porphyria , Urinary tract infection and Urolithiasis COURSE Treatment Treatment: SEE ORDERS. Education/Counseling Education/Counseling: Patient, Family and Education Educated On: Diagnosis ROR Labs Reviewed Laboratory Results Reviewed?: Yes Result Diagrams: 10/08/17 05:17 10/08/17 05:17 Laboratory: WBC 9.4 X10^3/uL (3.6-10.0) 10/08/17 05:17 RBC 3.94 X10^6/uL (3.5-5.4) 10/08/17 05:17 Hgb 12.3 g/dL (12.0-16.0) 10/08/17 05:17 Hct 35.1 % (36.0-47.0) L 10/08/17 05:17 MCV 89.0 fL (80.0-100.0) 10/08/17 05:17 MCH 31.3 pg (27.0-34.0) 10/08/17 05:17 MCHC 35.1 g/dL (33.0-35.0) H 10/08/17 05:17 RDW 13.0 % (11.6-16.5) 10/08/17 05:17 Plt Count 216 X10^3/uL (150.0-450.0) 10/08/17 05:17 MPV 10.6 fL (7.4-11.0) 10/08/17 05:17 Neut % (Auto) 63.0 % (42.0-75.0) 10/08/17 05:17 Lymph % (Auto) 26.6 % (21.0-51.0) 10/08/17 05:17 [place] % (Auto) 8.2 % (0.0-13.0) 10/08/17 05:17 Eos % (Auto) 1.6 % (0.9-2.9) 10/08/17 05:17 Baso % (Auto) 0.6 % (0.2-1.0) 10/08/17 05:17 Neut # (Auto) 6.0 x10^3/uL (2.2-4.8) H 10/08/17 05:17 Lymph # (Auto) 2.5 X10^3/uL (1.3-2.9) 10/08/17 05:17 [place] # (Auto) 0.8 x10^3/uL (0.3-0.8) 10/08/17 05:17 Eos # (Auto) 0.1 x10^3/uL (0.0-0.2) 10/08/17 05:17 Baso # (Auto) 0.1 X10^3/uL (0.0-0.1) 10/08/17 05:17 Absolute Nucleated RBC 0.1 /100WBC 10/08/17 05:17 ESR 14 MM/HOUR (0-20) 10/06/17 05:23 Sodium 140 mmol/L (136-145) 10/08/17 05:17 Corrected Sodium TNP 10/08/17 05:17 Potassium 3.6 mmol/L (3.5-5.1) 10/08/17 05:17 Chloride 102 mmol/L (98-107) 10/08/17 05:17 Carbon Dioxide 30.2 mmol/L (21-32) 10/08/17 05:17 BUN 6 mg/dL (7-18) L 10/08/17 05:17 Creatinine 0.63 mg/dL (0.55-1.02) 10/08/17 05:17 Est GFR (MDRD) Af Amer > 60 (>60) 10/08/17 05:17 Est GFR (MDRD) Non-Af > 60 (>60) 10/08/17 05:17 Glucose 92 mg/dL (65-99) 10/08/17 05:17 Calcium 8.5 mg/dL (8.5-10.1) 10/08/17 05:17 Corrected Calcium TNP 10/08/17 05:17 Magnesium 1.9 mg/dL (1.7-2.9) 10/07/17 05:15 Total Bilirubin 0.40 mg/dL (0.2-1.0) 10/08/17 05:17 AST 11 Units/L (15-37) L 10/08/17 05:17 ALT 20 Units/L (12-78) 10/08/17 05:17 Alkaline Phosphatase 75 Units/L (46-116) 10/08/17 05:17 Total Protein 6.9 g/dL (6.4-8.2) 10/08/17 05:17 Albumin 3.6 g/dL (3.4-5.0) 10/08/17 05:17 Globulin 3.3 g/dL (2.5-4.5) 10/08/17 05:17 Albumin/Globulin Ratio 1.1 Ratio (1.1-2.1) 10/08/17 05:17 Carcinoembryonic Ag 4.7 ng/mL (0.0-3.0) H 10/06/17 05:23 Urine Opiates Screen Negative (NEG=<300) 10/06/17 10:35 Urine Methadone Screen Negative (NEG=<300) 10/06/17 10:35 Ur Barbiturates Screen Negative (NEG=<200) 10/06/17 10:35 Ur Phencyclidine Scrn Negative (NEG=<25) 10/06/17 10:35 Ur Amphetamines Screen Positive (NEG=<1000) A 10/06/17 10:35 U Benzodiazepines Scrn Negative (NEG=<200) 10/06/17 10:35 Urine Cocaine Screen Negative (NEG=<300) 10/06/17 10:35 U Marijuana (THC) Screen Negative (NEG=<50) 10/06/17 10:35 Tissue Pathology To follow 10/06/17 14:03 XRAY XRAY Interpreted by: Radiologist XRAY Findings: REPORT DISCUSS WITH PATIENT. Diagnosis Discharge Problem: Abdominal pain, Bowel obstruction Instructions Instructions: Steps to Quit Smoking, Soyd-ya-Purs Small Bowel Obstruction, Pqfr-dx-Iodt Substance Use Disorder Nausea and Vomiting, Adult, [id number]-[id number] Abdominal Pain, Adult, Slyz-at-Rsuu Stimulant Use Disorder-Methamphetamines Forms: Patient Portal
--- NOTE | 2017-11-09 22:33 | DR.CARTERD ---
- Discharge Summary for: Discharge Summary for Date of:: 10/08/17 - Admission Date Date of Admission: 10/05/17 - Admission Diagnoses Admission Diagnosis: (1) Abdominal pain (2) Intractable nausea and vomiting - Discharge Date Discharge Date: 10/08/17 - Discharge Diagnoses Discharge Diagnosis: (1) Abdominal pain (2) Intractable nausea and vomiting (3) Gastritis (4) Gastroparesis - Hospital Course Hospital Course: DAY ONE, MS. MILLER IS A 32 YEAR OLD PATIENT OF OURS WHO PRESENTED TO THE EMERGENCY ROOM WITH COMPLAINTS OF NAUSEA, VOMITING, AND ABDOMINAL PAIN. PATIENT REPORTED THAT SYMPTOMS STARTED ONE DAY PRIOR. THIS WAS APPARENTLY THE THIRD VISIT FOR THIS PATIENT FOR THE SAME SYMPTOMS IN THE PAST 24 HOURS. ON EXAMINATION, PATIENT WAS NOTED WITH MODERATE ABDOMINAL PAIN. ON ARRIVAL, VITALS WERE 98.2-18-63-100%-123/58. LABS WERE OBTAINED. ABNORMAL LAB VALUES INCLUDED THE FOLLOWING: POTASSIUM 3.4, CARBON DIOXIDE 35.9, BUN 24, AST 9. AN ABDOMEN/ PELVIS CT WAS OBTAINED ONE DAY PRIOR ON HER PREVIOUS VISIT TO THE ER AND REVEALED: MODERATELY SEVERE DISTENTION OF THE STOMACH AND MODERATE DILATATION OF THE 1ST AND 2ND PORTION THE DUODENUM WITH THE 3RD PORTION OF THE DUODENUM APPEARING NORMAL CALIBER; MAY BE DUE TO OBSTRUCTION WITH NO OBVIOUS ABNORMALITY SEEN ALONG THE TRASITION OF THE 2ND AND 3RD PORTION THE DUODENUM; RECOMMEND FOLLOW-UP; QUESTIONABLE MILD ILEUS ALONG THE LOWER PELVIC LOWER ABDOMEN AND PELVIS WITH NO PELVIC MASS OR INFLAMMATION. PATIENT WAS ADMITTED FOR FURTHER EVALUATION AND TREATMENT. SHE WAS STARTED ON D5 NS AT 150ML/HR, DEMEROL 25MG IV Q6H PRN PAIN, ZOFRAN 8MG IV Q6H PRN NAUSEA, AND PROTONIX 40MG IV DAILY. WE CONSULTED , GENERAL SURGEON. WE CONTINUED TO MONITOR PATIENT. DAY TWO, WAS ADMITTED FOR POSSIBLE ILEUS AND SMALL BOWEL OBSTRUCTION. SHE WAS ALERT AND ORIENTED, LYING IN BED ON MORNING ROUNDS. SHE CONTINUED WITH COMPLAINTS OF DIFFUSE ABDOMINAL PAIN. AN NG TUBE WAS INSERTED THE NIGHT PRIOR, HOWEVER, PATIENT REMOVED TUBE ON HER OWN THIS DAY DUE TO DISCOMFORT. ON EXAMINATION, HEART WAS REGULAR IN RATE AND RHYTHM. BILATERAL LUNGS WERE NOTED WITH MODERATE, DIFFUSE ABDOMINAL PAIN ON EXAMINATION. INCREASED BOWEL SOUNDS WERE NOTED IN ALL QUADRANTS. HER VITALS WERE 98.4-60-20-99%-135/77. LABS WERE OBTAINED. ABNORMAL LAB VALUES INCLUDED THE FOLLOWING: WBC 11.6, HGB 11.6, HCT 33.6, GLUCOSE 157, AST 9, ALBUMIN 3.3. TOXICOLOGY REVEALED POSITIVE FOR AMPHETAMINES. PATIENT ADMITTED TO USE OF METHAMPHETAMINES PRIOR TO ADMISSION. CONSULTED WITH PATIENT AND PLANNED FOR AN UPPER ENDOSCOPY. DAY THREE, PATIENT CONTINUED WITH COMPLAINTS OF DIFFUSE ABDOMINAL PAIN, BUT REPORTED THAT IT WAS SLIGHTLY IMPROVED SINCE THE DAY PRIOR. DR. VELASCO TOOK PATIENT FOR AN UPPER ENDOSCOPY WITH BIOPSY. ENDOSCOPY REVEALED DILATED STOMACH, GASTROPARESIS, AND MODERATE GASTRITIS. NO BLEEDING OR ULCERS SEEN. BIOPSY SENT TO LAB. AN NG TUBE WAS REINSERTED THE DAY PRIOR, HOWEVER, PATIENT REMOVED TUBE HERSELF THE NIGHT PRIOR. PATIENT STATED, I GOT TO SNEEZING AND IT HURT. ON EXAMINATION, HEART WAS REGULAR IN RATE AND RHYTHM. BILATERAL LUNGS WERE CLEAR TO AUSCULTATION. ABDOMEN WAS NOTED WITH MILD, DIFFUSE ABDOMINAL PAIN ON EXAMINATION. INCREASED BOWEL SOUNDS WERE NOTED IN ALL QUADRANTS. HER VITALS WERE 99.7-62-18-98%-131/75. LABS WERE OBTAINED. ABNORMAL LAB VALUES INCLUDED THE FOLLOWING: WBC 10.7, HGB 11.6, HCT 32.6, POTASSIUM 2.7, BUN 6, GLUCOSE 103, CALCIUM 8.2, AST 11, TOTAL PROTEIN 6.3. WE CONTINUED TO MONITOR PATIENT. DAY FOUR, PATIENT REPORTED THAT SHE WAS FEELING SOME BETTER. PATIENT DENIED ABDOMINAL PAIN UPON PALPATION. VITAL SIGNS STABLE. LABS WNL. KUB WAS OBTAINED AND REPORTED: NO EVIDENCE OF ACUTE ABDOMINAL PATHOLOGY NOTED. PATIENT REQUESTED TO LEAVE HOSPITAL AGAINST MEDICAL ADVICE. RISKS AND OUTCOMES WERE EXPLAINED TO PATIENT. PATIENT LEFT HOSPITAL IN STABLE CONDITION WITH FAMILY. - Discharge Medications Discharge Medications: Home Medication List buprenorphine-naloxone [Suboxone] 1 film SUBLINGUAL TID 10/05/17 [History] cyproheptadine 1 tab PO BID 10/05/17 [History] Prescriptions: NONE - Discharge Disposition Discharge Disposition: PATIENT IS TO FOLLOW UP IN OUR OFFICE IN ONE WEEK.
== END 2017-10-08 12:00 | disposition left against medical advice (07) | DRG 390 ==
LOC: MED/SURG 04:47 → ER 04:47 → OBSVTOIN 08:51 → MED/SURG 09:03
PROVIDERS: ADMIT Internal Medicine; ATTEND Internal Medicine
DX: F15.90 Other stimulant use, unspecified, uncomplicated; R11.2 Nausea with vomiting, unspecified; K21.9 Gastro-esophageal reflux disease without esophagitis; R10.84 Generalized abdominal pain; K29.60 Other gastritis without bleeding; K31.84 Gastroparesis; K56.690 Other partial intestinal obstruction
CPT/HCPCS: 36415; 74000; 74018; 74022; 80053; 80307; 82378; 83735; 84132; 85025; 85652; 96365; 96374; 96375; 99284; A4222; C9113; A4217; G0434; J2175; J2250; J2405; J2550; J2704; J3480; J3490; J7030; S5010